=== PATIENT | male | born 1955 | race Caucasian/White ===

== ENCOUNTER 2016-07-27 00:22 | Day surgery (SDC) | payer BC ==
[~2016-07-27] VITALS: Ht 162.6 cm; Wt 65.8 kg
[2016-07-27] VITALS (10 sets, daily range): BP systolic 123–151; BP diastolic 67–81
[2016-07-27] MEDS ORDERED: LEVAQUIN 100 ML IV ONE ×2 (05:04→06:00)
[2016-07-27] MEDS ORDERED: LACTATED RINGERS 1,000 ML ONE ×2 (05:04→10:15)
[2016-07-27] MEDS: LACTATED RINGERS 1,000 ML IV SCH ×2 (07:34→10:19)
[2016-07-27] MEDS ORDERED: ZEMURON IV ONE (07:55)
[2016-07-27] MEDS ORDERED: ZOFRAN ONE (07:55)
[2016-07-27] MEDS ORDERED: NEOSTIGMINE ONE (07:55)
[2016-07-27] MEDS ORDERED: ROBINUL ONE (07:55)
[2016-07-27] MEDS ORDERED: SUBLIMAZE ONE ×2 (07:56→10:27)
[2016-07-27] MEDS ORDERED: VERSED ONE (07:56)
[2016-07-27] MEDS ORDERED: DIPRIVAN IV ONE (07:56)
[2016-07-27] MEDS ORDERED: SODIUM CHLORIDE IR ONE (09:09)
[2016-07-27] MEDS ORDERED: SENSORCAINE-MPF 0.5% VIAL ONE (09:41)
[2016-07-27] MEDS ORDERED: SUBLIMAZE IV ONE (10:30)
[2016-07-27] MEDS ORDERED: ULTRAM ONE (10:56)
[2016-07-27] MEDS ORDERED: ULTRAM PO PRN (10:58)
[2016-07-27] MEDS ORDERED: TRAM50TA PO (11:09)
[2016-07-27] MEDS ORDERED: CIPR500T86 PO (11:10)
--- NOTE | 2016-07-27 17:46 | OPH ---
DATE OF SURGERY: 07/27/2016 PREOPERATIVE DIAGNOSIS: Left hydrocele. FINAL DIAGNOSIS: Left hydrocele. PROCEDURES: Left hydrocelectomy. DESCRIPTION OF PROCEDURE: The patient was brought to the operating room, was put in supine position on the operating room table. After the patient was given a satisfactory and adequate LMA general anesthesia, the patient's genitalia was then prepped and draped aseptically in the usual manner. First, a transverse incision was done in the left hemiscrotal sac. Incision was deepened up to the tunica. A blunt and sharp dissection ____ testis was led out of the left hemiscrotal sac and there was a large hydrocele noted. The ____ sac was opened, fluid was removed and the hydrocele sac was then excised along the epididymis and the edge of the epididymis and testis. All bleeders were promptly fulgurated. After that, the running suture of 3-0 chromic catgut was done at the edges of the hydrocele sac. After adequate hemostasis, the rest of the testis was inspected and there was no other abnormalities noted. The left testis was then put back in its normal anatomical position in the left hemiscrotal sac. A Brynn drain was placed at the incision site and then the incision site was closed in 2 layers by the use of 3-0 chromic catgut in an interrupted fashion. After the ____ was approximated, Marcaine 5% was injected along the site of the incision and pressure dressing was applied including scrotal support. The patient was then awakened, was transferred to the recovery room in stable condition. Luis M Son MD DR: [email or web address]/jesus JOB# [id number]
== END 2016-07-27 11:30 | disposition home or self-care (01) ==
LOC: SURG 00:22 → EDUNIT# 09:15 → SURG 11:30
PROVIDERS: ATTEND Urology
DX: N43.3 Hydrocele, unspecified (principal); F17.210 Nicotine dependence, cigarettes, uncomplicated
CPT/HCPCS: 55040; 88302; J1956; J2250; J2405; J2710; J3010 ×2; J3490 ×3; J7030; J7120 ×2